=== PATIENT | female | born 1940 | race Caucasian/White ===

== ENCOUNTER 2016-08-02 12:04 | Emergency (ER) | payer MEDICARE ==
--- NOTE | 2016-08-02 12:49 | Emergency Department Record ---
History of Present Illness - General Chief Complaint: Cough Stated Complaint: COUGH/FEVER/DIARRHEA Time Seen by Provider: 08/02/16 12:43 Source: Patient, Family Mode of Arrival: Ambulatory Limitations: No limitations - History of Present Illness Initial Comments: 75 yo female presents not feeling well for the week starting on Thursday. She has felt tired, weak and short of breath. She has has subjective fevers and chills. She has had some palpitations and chest discomfort at times at well. No vomiting. She developed diarrhea yesterday. Mild burning with urination. No swelling. She has a history of CAD,AL,Afib. PCP is Dr Molina, [facility] Complaint: Cough, Other Onset/Timin -: Days(s) Consistency: Constant Associated Symptoms: Chest pain, Chills, Cough, Diarrhea, Fever, Myalgias, Shortness of breath Treatments Prior to Arrival: None - Related Data Home Medications Medication Instructions Recorded Confirmed Last Taken Glimepiride [Amaryl] 3.5 mg PO DAILY 08/02/16 08/02/16 Unknown Metformin HCl [Metformin HCl ER] 1,000 mg PO BID 08/02/16 08/02/16 Unknown Rivaroxaban [Xarelto] 20 mg PO DAILY 08/02/16 08/02/16 Unknown Sotalol HCl [Betapace] 120 mg PO BID 08/02/16 08/02/16 Unknown Valsartan/Hydrochlorothiazide 1 each PO DAILY 08/02/16 08/02/16 Unknown [Diovan Hct 160-12.5 mg Tab] Travel Screening - Travel/Exposure Within Last 30 Days Have you traveled within the last 30 days?: No Review of Systems Constitutional: Reports: Chills, Fever, Malaise, Weakness Eyes: Denies: Eye discharge, Eye pain, Photophobia, Vision change ENT: Reports: Congestion, Throat pain. Denies: Ear pain Respiratory: Reports: Cough, Dyspnea. Denies: Hemoptysis, Stridor, Wheezes Cardiovascular: Reports: Chest pain, Palpitations. Denies: Syncope Endocrine: Reports: Fatigue Gastrointestinal: Reports: Diarrhea, Nausea. Denies: Abdominal pain, Constipation, Hematemesis, Hematochezia, Vomiting Genitourinary: Reports: Dysuria. Denies: Hematuria Musculoskeletal: Reports: Myalgia. Denies: Arthralgia, Back pain, Gout, Joint swelling, Neck pain Skin: Denies: Bruising, Change in color Neurological: Denies: Confusion, Headache Psychiatric: Denies: Anxiety Hematological/Lymphatic: Denies: Anemia, Blood Clots, Easy bleeding, Easy bruising, Swollen glands Past Medical History - SOCIAL HISTORY Smoking Status: Former smoker Alcohol Use: None Drug Use: None - RESPIRATORY Hx Respiratory Disorders: No - CARDIOVASCULAR Hx Cardio Disorders: Yes Hx Abnormal EKG: Yes Hx Cardiac Cath: Yes Hx Heart Attack: Yes Hx Hypertension: Yes Hx Irregular Heartbeat: Yes (afib) - NEURO Hx Neuro Disorders: No - GI Hx GI Disorders: No - Hx Genitourinary Disorders: No - ENDOCRINE Hx Endocrine Disorders: Yes Hx Diabetes: Yes (type 2) Hx Thyroid Disease: Yes - MUSCULOSKELETAL Hx Musculoskeletal Disorders: Yes Hx Arthritis: Yes - PSYCH Hx Psych Problems: No - HEMATOLOGY/ONCOLOGY Hx Hematology/Oncology Disorders: No Family Medical History Any Significant Family History?: No Physical Exam - General General Appearance: Alert, Oriented x3, Cooperative, No acute distress Limitations: No limitations - Head Head exam: Normal inspection - Eye Eye exam: Normal appearance, PERRL. negative: Conjunctival injection, Periorbital swelling - ENT ENT exam: Normal exam, Mucous membranes moist, Normal external ear exam, Normal orophraynx Ear exam: Normal external inspection. negative: External canal tenderness Nasal Exam: Normal inspection. negative: Discharge, Sinus tenderness Mouth exam: Normal external inspection, Tongue normal Teeth exam: Normal inspection. negative: Dental caries Throat exam: Normal inspection. negative: Tonsillar erythema, Tonsillar exudate - Neck Neck exam: Normal inspection, Full ROM. negative: Tenderness - Respiratory Respiratory exam: Normal lung sounds bilaterally. negative: Respiratory distress - Cardiovascular Cardiovascular Exam: Irregular rhythm. negative: Regular rate, Normal rhythm - GI/Abdominal GI/Abdominal exam: Soft. negative: Distended, Tenderness - Rectal Rectal exam: Deferred - exam: Deferred - Extremities Extremities exam: Normal inspection, Full ROM, Normal capillary refill. negative: Tenderness - Back Back exam: Reports: Normal inspection, Full ROM. Denies: Muscle spasm, Rash noted, Tenderness - Neurological Neurological exam: Alert, Normal gait, Oriented X3 - Psychiatric Psychiatric exam: Normal affect, Normal mood. negative: Anxious, Depressed - Skin Skin exam: Dry, Intact, Normal color, Warm Course Vital Signs 08/02/16 12:09 Temperature 98.0 F Pulse Rate 108 H Respiratory 20 Rate Blood Pressure 126/87 Pulse Ox 94 L - Reevaluation(s) Reevaluation #1: EKG 12:46 Afib with VR of 118, intervals normal, axis rightward, ST no acute changes (prior EKG NSR 2004). Per patient her last afib was about 3 years ago. 08/02/16 12:58 Reevaluation #2: The labs were reviewed No acute changes of the CBC CMP with Bili of 1.7 BNP was 1520 Troponin was 0.013 Influenza was negative 08/02/16 13:55 Reevaluation #3: The VR is still about 110. Cardizem drip ordered at 5mg/hr CXR was negative for acute process. 08/02/16 13:59 Reevaluation #4: I discussed the results with the patient Given her dyspnea, chest pain, afib with RVR she requests transfer to [facility] where are doctor is located. 08/02/16 14:51 - Consultations Consultation #1: 15:[address] Zepeda of [facility]. He accepts the patient to [facility] for telemetry, afib rate control Medical Decision Making - Lab Data Result diagrams: 08/02/16 13:00 08/02/16 13:00 Disposition Disposition: Transfer Clinical Impression: Bronchitis, Atrial fibrillation with RVR, Atypical Chest Pain Dyspnea Qualifiers: Dyspnea type: unspecified Qualified Code(s): R06.00 - Dyspnea, unspecified Disposition: Home, Self-Care Transfer To: [facility] Reason For Transfer: Pt request, AfibRVR,cardiology consult Accepting Physician: Duane Time Discussed w/Accepting Physician: 15:15 Condition: (2) Stable Forms: Patient Portal Access Time of Disposition: 14:53
[2016-08-02 13:15] LABS: HEMATOCRIT 44.7 % (35.0-47.0); HEMOGLOBIN 15.3 gm/dl (11.6-16.0); MEAN CELL VOLUME 86.6 fl (81-97); MEAN CORPUSCULAR HEMOGLOBIN 29.7 pg (27-33); MEAN CORPUSCULAR HGB CONC 34.2 g/dl (32-36); MEAN PLATELET VOLUME 9.3 fl (7.4-10.4); PLATELET COUNT 152 K/uL (130-400); RED BLOOD COUNT 5.16 M/uL (3.80-5.40); RED CELL DISTRIBUTION WIDTH 13.4 % (11.5-14.5); WHITE BLOOD COUNT W/O DIFF 6.3 K/uL (4.2-12.2)
[2016-08-02 13:28] LABS: INFLUENZA A NEGATIVE (NEGATIVE); INFLUENZA B NEGATIVE (NEGATIVE)
[2016-08-02 13:30] LABS: ALB/GLOB RATIO 1.4 (1.1-1.8); ALBUMIN 4.4 gm/dL (3.5-5.0); ALKALINE PHOSPHATASE 78 U/L (38-126); ALT/SGPT 36 U/L (9-52); ANION GAP 15.2 (7-16); AST/SGOT 28 U/L (14-36); BILIRUBIN,TOTAL 1.75 mg/dL (0.2-1.3); BLOOD UREA NITROGEN 9 mg/dL (7-17); CARBON DIOXIDE 24.8 mmol/L (22-30); CREATINE PHOSPHOKINASE 49 U/L (30-135); CREATININE 0.6 mg/dL (0.52-1.04); EST GLOMERULAR FILTRATION RATE > 60 ml/min; GLUCOSE,RANDOM 259 mg/dL (70-110); INR 1.02; PROTHROMBIN TIME (PATIENT) 11.5 SECONDS (9.5-12.1); TOTAL PROTEIN 7.6 gm/dL (6.3-8.2)
[2016-08-02 13:41] LABS: CKMB 0.6 ug/L (0-6); TROPONIN I 0.013 ng/mL (0.00-0.034)
[2016-08-02 13:45] LABS: PARTIAL THROMBOPLASTIN TIME 28.2 SECONDS (24.5-39.1)
[2016-08-02] MEDS ORDERED: DILTIAZEM HCL 125 MG in 0.9 % SODIUM CHLORIDE 100ML 100 ML IV SCH (14:00)
[2016-08-02 15:09] LABS: URINE APPEARANCE SL CLOUDY; URINE BILIRUBIN SMALL (NEGATIVE); URINE BLOOD SMALL (NEGATIVE); URINE COLOR YELLOW; URINE KETONE TRACE (NEGATIVE); URINE LEUKOCYTE ESTERASE MODERATE (NEGATIVE); URINE NITRITE NEGATIVE (NEGATIVE); URINE UROBILINOGEN 0.2 E.U./dL (0.20 - 1.00)
[2016-08-02 15:16] LABS: URINE BACTERIA 4+; URINE SQUAMOUS EPITHELIAL CELL 0 - 2 /hpf
== END 2016-08-02 16:40 | disposition home or self-care (01) ==
LOC: ER 12:04
DX: I48.2 Chronic atrial fibrillation (principal); J20.9 Acute bronchitis, unspecified; R07.89 Other chest pain; I25.10 Atherosclerotic heart disease of native coronary artery without angina pectoris; R19.7 Diarrhea, unspecified; R06.00 Dyspnea, unspecified; R30.0 Dysuria; I10 Essential (primary) hypertension; I25.2 Old myocardial infarction; E11.9 Type 2 diabetes mellitus without complications; Z79.84 Long term (current) use of oral hypoglycemic drugs; Z79.01 Long term (current) use of anticoagulants; Z87.891 Personal history of nicotine dependence
CPT/HCPCS: 71020; 80053; 81001; 82550; 82553; 83880; 84484; 85027; 85610; 85730; 87400; 93005; 93010; 96365; 96366; 99285